=== PATIENT | male | born 1945 | race Asian ===

== ENCOUNTER 2016-08-17 14:51 | Emergency (ER) | payer OTHER, MEDICAID ==
[~2016-08-17] VITALS: Ht 167.6 cm; Wt 59.9 kg
[~2016-08-17 14:51] MED LIST: AGGRENOX PO; DILT240C2 PO; FLUT1DIS3 INH; LEVA15HF5 INH; LEVO100T PO; MONT10TA22 PO; NITR0.4T6 SL; SIMV20TA6 PO; TAMS-11 PO
[2016-08-17 15:15] VITALS: BP_SYST 123
--- NOTE | 2016-08-17 15:19 | NUR ---
Patient to ER bed 02 to gown for evaluation. Side rails up.
--- NOTE | 2016-08-17 15:41 | NUR ---
ER at bedside examining patient.
[2016-08-17 15:51] LABS: HEMOGLOBIN 16.4 g/dL (14.0-18.0); MEAN CORPUSCULAR HEMOGLOBIN 31 pg (27-31); MEAN CORPUSCULAR HGB CONC 34 % (32-36); MEAN CORPUSCULAR VOLUME 93 fL (79.0-98.0); PLATELET COUNT (AUTO) 258 K/uL (130-430); RED BLOOD CELL COUNT(AUTO) 5.25 MIL/uL (4.2-6.2); RED CELL DISTRIBUTION WIDTH 14.2 % (9.0-15.0); WHITE BLOOD COUNT (AUTO) 18.7 K/uL (4.8-10.8)
[2016-08-17] MEDS ORDERED: KETOROLAC TROMETHAMINE 30 MG VIAL IVP ONE (16:00)
[2016-08-17] MEDS ORDERED: methylPREDNISolone SOD SUCC/PF 62.5 MG/ML VIAL IVP ONE (16:00)
[2016-08-17 16:02] LABS: CALCIUM 8.4 mg/dL (8.4-11.0); CREATININE 1.93 mg/dL (0.55-1.30); INR 1.1 (0.80-1.20); POTASSIUM 4.6 mmol/L (3.5-5.1); PROTHROMBIN TIME 11.5 SECS (9.5-12.5)
[2016-08-17 16:07] LABS: ALBUMIN 3.3 g/dL (3.4-4.8); TOTAL BILIRUBIN 0.9 mg/dL (0.0-1.0); TOTAL PROTEIN, SERUM 6.8 g/dL (6.4-8.3)
[2016-08-17 16:31] LABS: ATYPICAL LYMPHOCYTES % 9 % (0-0); BAND % (MANUAL) 9 % (0-6); BASOPHILS % (MANUAL) 0 % (0-2); EOSINOPHILS % (MANUAL) 0 % (0-7); LYMPHOCYTES % (MANUAL) 7 % (20-46); MONOCYTES % (MANUAL) 3 % (0-11)
[2016-08-17] MEDS ORDERED: cefTRIAXone 1 GM IVPB PREMIX 50 ML IV ONE ×2 (16:45→16:53)
--- NOTE | 2016-08-17 16:50 | NUR ---
# 20 gauge angiocath placed to left hand . Use of asceptic technique. Opsite placed over site. Blood return noted. Flushed with 10 cc of normal saline. No evidence of infiltration noted. Patient tolerated well.
--- NOTE | 2016-08-17 16:51 | NUR ---
medicated per MD's orders
--- NOTE | 2016-08-17 17:54 | NUR ---
Patient does not wish to proceed with medical care recommended by dr clark. Patient given information related to possible complications, up to and including , which could occur as a result of leaving hospital at this time. Patient verbalizes understanding of risks involved leaving against medical advice. Patient has signed AMA form.
[2016-08-17 17:58] VITALS: BP_SYST 138
== END 2016-08-17 17:54 | disposition left against medical advice (07) ==
LOC: SED 14:51
DX: M10.9 Gout, unspecified (principal); A41.9 Sepsis, unspecified organism; J45.909 Unspecified asthma, uncomplicated
CPT/HCPCS: 36415; 71010; 80053; 83605; 83874; 84550; 85007; 85027; 85379; 85610; 85730; 87040; 93005; 96365; 96375; 99285; J0696; J1885; J2930

== ENCOUNTER 2016-09-22 16:55 | Emergency (ER) | payer OTHER, MEDICAID ==
[~2016-09-22] VITALS: Ht 167.6 cm; Wt 61.2 kg
[2016-09-22 17:03] VITALS: BP_SYST 158
[2016-09-22] MEDS ORDERED: KETOROLAC TROMETHAMINE 60 MG/2 ML VIAL IM ONE (17:30)
== END 2016-09-22 18:45 | disposition home or self-care (01) ==
LOC: SED 16:55
DX: L03.116 Cellulitis of left lower limb (principal); L03.113 Cellulitis of right upper limb; J44.9 Chronic obstructive pulmonary disease, unspecified; I10 Essential (primary) hypertension; Z86.73 Personal history of transient ischemic attack (TIA), and cerebral infarction without residual deficits
CPT/HCPCS: 96372; 99283; J1885

== ENCOUNTER 2017-07-23 18:10 | Emergency (ER) | payer OTHER ==
[~2017-07-23] VITALS: Ht 170.2 cm; Wt 59.0 kg
[2017-07-23 18:10] VITALS: BP_SYST 167
[2017-07-23] MEDS ORDERED: COLCHICINE 0.6 MG TABLET PO ONE (19:00)
[2017-07-23] MEDS ORDERED: KETOROLAC TROMETHAMINE 60 MG/2 ML VIAL IM ONE (19:00)
[2017-07-23] MEDS ORDERED: COLCHICINE 0.6 MG TABLET ONE (19:13)
[2017-07-23 19:27] VITALS: BP_SYST 151
== END 2017-07-23 19:27 | disposition home or self-care (01) ==
LOC: SED 18:10
DX: M10.9 Gout, unspecified (principal); J44.9 Chronic obstructive pulmonary disease, unspecified; I10 Essential (primary) hypertension; Z86.73 Personal history of transient ischemic attack (TIA), and cerebral infarction without residual deficits; Z79.899 Other long term (current) drug therapy
CPT/HCPCS: 96372; 99283; J1885

== ENCOUNTER 2018-06-30 16:41 | Emergency (ER) | payer OTHER ==
[~2018-06-30] VITALS: Ht 170.2 cm; Wt 57.2 kg
[~2018-06-30 16:41] MED LIST changes: +NITR0.4T47 SL; -NITR0.4T6 SL
[2018-06-30 16:48] VITALS: BP_SYST 147
[2018-06-30] MEDS ORDERED: MORPHINE 4 MG/ML INJ. SYRINGE IM ONE (17:30)
[2018-06-30 18:02] VITALS: BP_SYST 120
== END 2018-06-30 18:02 | disposition home or self-care (01) ==
LOC: SED 16:41
DX: S80.02XA Contusion of left knee, initial encounter (principal); Y99.8 Other external cause status; J44.9 Chronic obstructive pulmonary disease, unspecified; I10 Essential (primary) hypertension; Z86.79 Personal history of other diseases of the circulatory system; Z86.73 Personal history of transient ischemic attack (TIA), and cerebral infarction without residual deficits; Z79.899 Other long term (current) drug therapy; W19.XXXA Unspecified fall, initial encounter; Y93.89 Activity, other specified; Y92.89 Other specified places as the place of occurrence of the external cause
CPT/HCPCS: 73564; 96372; 99283; J2270

== ENCOUNTER 2019-05-19 11:20 | Emergency (ER) | payer OTHER ==
[~2019-05-19] VITALS: Ht 170.2 cm; Wt 56.7 kg
[2019-05-19 11:20] VITALS: BP_SYST 157
[~2019-05-19 11:20] MED LIST changes: +ALLO100T PO; +CALC-1036 PO; +COLC0.6T67 PO; +DOCU-144 PO; +HYDR-3917 PO; +IPRA3AMP9 INH; +LISI-600 PO; +OMEP40CA33 PO; +PRED10TA PO; +RIVA15TA PO; +SIMV40TA2 PO; +TYC3 PO; +[UNRECOGNIZED DRUG - OTHER] PO
[2019-05-19] MEDS ORDERED: KETOROLAC TROMETHAMINE 30 MG VIAL IM ONE (12:15)
== END 2019-05-19 13:20 | disposition home or self-care (01) ==
LOC: SED 11:20
DX: M10.9 Gout, unspecified (principal); J45.909 Unspecified asthma, uncomplicated; J44.9 Chronic obstructive pulmonary disease, unspecified; I10 Essential (primary) hypertension; Z79.899 Other long term (current) drug therapy
CPT/HCPCS: 96372; 99283; J1885